=== PATIENT | female | born 1940 | race Two or more races ===

== ENCOUNTER 2024-04-15 10:18 | Emergency (ER) | payer MEDICARE, MEDICAID, SELFPAY ==
[2024-04-15 10:33] VITALS: BP 128/68; PULSE 81; RESP 18; TEMP 37.2; O2SAT 95; BMI 46.8
--- NOTE | 2024-04-15 11:40 | PD.EDRME ---
Rapid Medical Screening Exam RME Arrival date/time: 04/15/24 10:18 This is an 83-year-old female that comes in with complaints of right great toe swelling and pain. Patient states she dropped an object that weighed about 10 pounds to her right foot about 6 days ago. Patient has a history of diabetes, high blood pressure, hyperlipidemia,. Patient has a history of a cholecystectomy and a hernia repair. Patient also complains of a cough for 2 weeks. Patient denies nausea vomiting diarrhea fever. I have greeted and performed a focused initial assessment of this patient. Initial appropriate labs ordered at this time. A comprehensive ED assessment and evaluation of the patient and analysis of all test and completion of medical decision making process will be conducted by additional ED provider. Chief Complaint: Ankle/Foot Injury Time Seen by Provider: 04/15/24 11:27 Vital signs: Vital Signs Temperature 98.9 F 04/15/24 10:33 Pulse Rate 81 04/15/24 10:33 Respiratory Rate 18 04/15/24 10:33 Blood Pressure 128/68 04/15/24 10:33 Pulse Oximetry (%) 95 04/15/24 10:33 Oxygen Delivery Method Room Air 04/15/24 10:33
--- NOTE | 2024-04-15 11:41 | XR_ITS ---
Examination: Foot, right, 3 views Technique: AP, oblique, lateral views foot, 3 views Date and time of exam: April 15, 2024 1158 hrs. Indications: Injury to the foot 5 days ago with first digit pain Findings: Severe osteopenia Fractures through the distal portion distal phalanx first digit with up to 3.6 mm offset of the main fracture fragments No dislocation Impression: Comminuted displaced fractures distal phalanx first digit
--- NOTE | 2024-04-15 11:44 | XR_ITS ---
Examination: PA chest single view Technique: Upright PA chest single view Exam date and time: April 15, 2024 1155 hrs. Comparison March 07, 2024 Indications: Coughing beginning 2 weeks ago. Findings: Early heart failure Mild to moderate enlargement cardiac contour Prominent vascular congestion, suspicious for early septal edema at the lung bases No lobar pneumonia Impression: Early heart failure
[2024-04-15 12:38] LABS: Basophils # (Auto) 0.2 Thou/mm3 (0.0-0.2); Basophils % (Auto) 1 % (0-2.5); Eosinophils # (Auto) 0.7 Thou/mm3 (0.0-0.5); Eosinophils % (Auto) 6 % (0-10); Hematocrit 41.8 % (36.0-46.0); Hemoglobin 13.3 g/dL (12.0-16.0); Immature Granulocytes % (Auto) 1 % (0-0); Immature Granulocytes Auto 0.16 Thou/mm3 (0.00-0.00); Lymphocytes # (Auto) 1.9 Thou/mm3 (1.0-4.8); Lymphocytes % (Auto) 17 % (10-50); Mean Corpuscular HGB Conc 31.8 g/dl (31.0-37.0); Mean Corpuscular Volume 94 fL (80-100); Monocytes # (Auto) 0.8 Thou/mm3 (0.0-0.8); Monocytes % (Auto) 8 % (0-12); Neutrophils # (Auto) 7.5 Thou/mm3 (1.8-7.7); Neutrophils % (Auto) 67 % (37-80); Nucleated Red Blood Cell % 0 /100 WBC (0); Platelet Count 281 Thou/mm3 (140-440); RDW Standard Deviation 49.2 fL (36.4-46.3); Red Blood Count 4.44 Miln/mm3 (4.00-5.20); White Blood Count 11.2 Thou/mm3 (3.6-11.0)
[2024-04-15 12:48] LABS: Alanine Aminotransferase 21 U/L (10-49); Albumin, Serum 4.8 gm/dL (3.4-4.8); Albumin/Globulin Ratio 1.6 (1.2-2.2); Alkaline Phosphatase 124 U/L (46-116); Anion Gap 6 (7-16); Aspartate Amino Transferase 21 U/L (0-34); BUN/Creatinine Ratio 26 Ratio (12-20); Bilirubin,Total 0.4 mg/dL (0.3-1.2); Blood Urea Nitrogen 21 mg/dL (9-23); C-Reactive Protein 1.7 mg/dL (0.0-0.9); Calcium 9.5 mg/dL (8.3-10.6); Calcium (Corrected) 9.5 mg/dL (8.5-10.1); Carbon Dioxide 27.2 mMol/L (20.0-31.0); Chloride 104 mMol/L (98-107); Creatinine (Component) 0.8 mg/dL (0.6-1.3); Estimated Creatinine Clearance 58.5 mL/min (>60); Glucose 105 mg/dL (74-106); Osmolality,Calculated 276 (275-295); Potassium 4.8 mMol/L (3.4-5.1); Sodium 137 mMol/L (136-145); Total Protein 7.8 gm/dL (5.7-8.2); eGFR > 60 See Note
--- NOTE | 2024-04-15 13:33 | EDNOTE_ITS ---
ED General RME/HPI General Chief complaint: Ankle/Foot Injury Stated complaint: Toe injury on Tuesday, cough X 2 weeks Time Seen by Provider: 04/15/24 11:27 Arrival date/time: 04/15/24 10:18 CC: Right great toe pain HPI onset 6 days ago after dropping a frozen piece of meat on your toe, patient states she is persistently a toe and now the toe is swollen . Patient denies fever chills shortness of breath or difficulty breathing. Localized pain is 1-2 on a 10 scale. Denies numbness or tingling in the toe. RME / HPI RME / HPI narrative: 04/15/24 10:18 This is an 83-year-old female that comes in with complaints of right great toe swelling and pain. Patient states she dropped an object that weighed about 10 pounds to her right foot about 6 days ago. Patient has a history of diabetes, high blood pressure, hyperlipidemia,. Patient has a history of a cholecystectomy and a hernia repair. Patient also complains of a cough for 2 weeks. Patient denies nausea vomiting diarrhea fever. I have greeted and performed a focused initial assessment of this patient. Initial appropriate labs ordered at this time. A comprehensive ED assessment and evaluation of the patient and analysis of all test and completion of medical decision making process will be conducted by additional ED provider. Related Data Home Medications ?Medication ?Instructions ?Recorded ?Confirmed docusate sodium 100 mg capsule 100 mg PO BID #0 caps 03/21/15 08/07/23 (Colace) folic acid 1 mg tablet 1 mg PO QDAY #0 tabs 03/21/15 08/07/23 metoprolol succinate 50 mg 50 mg PO QDAY ##30 03/21/15 08/07/23 tablet,extended release 24 hr simvastatin 40 mg tablet 40 mg PO QDAY ##90 03/21/15 08/07/23 duloxetine 60 mg capsule,delayed 60 mg PO QDAY 08/07/23 08/07/23 release isosorbide mononitrate 60 mg 60 mg PO QAM 08/07/23 08/07/23 tablet,extended release 24 hr levothyroxine 150 mcg tablet 150 mcg PO QAM 08/07/23 08/07/23 metformin 750 mg tablet,extended 750 mg PO QDAY 08/07/23 08/07/23 release 24 hr montelukast 10 mg tablet 10 mg PO QDAY 08/07/23 08/07/23 Previous Rx's ?Medication ?Instructions ?Recorded benzonatate 100 mg capsule 100 mg PO TID PRN cough #14 caps 11/16/20 (Irasema Marquez) Allergies Allergy/AdvReac Type Severity Reaction Status Date / Time Penicillins Allergy Severe HIVES AND Verified 08/05/23 10:34 ITCHING Review of Systems Review of Systems Narrative Review of Systems: GEN: No fever, no chills, no weight loss EYES: No discharge, no visual changes, no pain HEENT: No ear pain, no congestion, no sore throat PULM: No shortness of breath, no cough, no congestion CV: No chest pain, no dyspnea on exertion, no palpitations GI: No nausea, no vomiting, no diarrhea, no pain, no constipation : No frequency, no urgency, no dysuria MUSC/SKEL: No joint pain, no back pain,+ great toe pain SKIN: No rash PSYCH: No hallucinations, no depression HEME/LYMPH: No easy bleeding or bruising tendencies NEURO: No weakness, no headache Past Medical History Past Medical History NEUROLOGIC: Negative Seizures CARDIAC: Positive Cardiac Disorders, Hypertension and Hypotension; Negative Congestive Heart Failure RESPIRATORY: Negative Chronic Obstructive Pulmonary Disease (COPD) or Asthma GENITOURINARY: Negative Renal Disease ENDOCRINE: Negative Diabetes Mellitus Type 1 or Diabetes Mellitus Type 2 HEMATOLOGIC: Negative Sickle Cell Disease OTHER HISTORY: Negative Blood Transfusions, Blood Transfusion Reaction or Anesthesia Reactions Surgical History SURGICAL: Positive Abdominal Surgery Social History SMOKING STATUS: Former smoker ED Exam Narrative Physical exam: [General: Morbidly obese not in any acute distress Head normocephalic HEENT: Within acceptable limits Neck is supple nontender Chest equal chest rise nontender to palpation Respiratory: Clear to auscultation no wheezes crackles or rubs CV: Rate rhythm is regular no murmurs rubs or clicks Abdomen is distended secondary to body habitus soft nontender no masses positive bowel sounds all 4 quadrants Back: No CVA tenderness no spinous process tenderness from cervical spine thoracic and lumbar spine Skin: Large hematoma overlying the dorsum of the right great toe. No surrounding erythema or edema. Hematoma is equivalent to the size of the toe itself. Nontender to touch. Otherwise skin is intact no petechiae rash induration ulceration or crepitus Extremities: Moving all extremity against resistance cap refill less than 2 seconds neurosensory intact Neuro: Awake alert oriented x3 Glascow coma 15 no focal deficits] Course Quality Measures none Orders Category Date Time Status Splint / Immobilizer STAT Care 04/15/24 13:37 Completed XR chest 2V Stat Exams 04/15/24 11:44 Completed XR foot comp RT min 3V Stat Exams 04/15/24 11:41 Completed CBC Stat Lab 04/15/24 12:18 Completed CRP [C-Reactive Protein] Stat Lab 04/15/24 12:18 Completed Comprehensive Metabolic Panel Stat Lab 04/15/24 12:18 Completed Vital Signs Vital signs: Vital Signs Temperature 98.9 F 04/15/24 10:33 Pulse Rate 81 04/15/24 10:33 Respiratory Rate 18 04/15/24 10:33 Blood Pressure 128/68 04/15/24 10:33 Pulse Oximetry (%) 95 04/15/24 10:33 Oxygen Delivery Method Room Air 04/15/24 10:33 Procedures -ED Procedure Comment Draining hematoma, #11 scalpel used to darlene the side, it was mostly filled with serous fluid, site was then cleaned skin was lifted from the area no open puncture wound or laceration underlying it indicating an open fracture. Site was then dressed with triple antibiotic ointment and a bulky dressing. Patient was able to flex and extend the toe throughout the procedure. Cap refill in the digit and is less than 2 seconds neurosensory intact. [facility] Patient data External records reviewed:: [facility] previous records Clinical information provided by:: patient Social determinants that could affect healthcare access:: none Patient has the following chronic illnesses:: Diabetes hypertension hyperlipidemia How is presenting disease/condition affected by chronic disease/condition?: u neffected by Evaluation data The following diagnostics were reviewed and interpreted by me:: lab results and radiology exam(s) Lab and/or radiology exams considered but not ordered:: Comminuted tuft fracture on EKG as interpreted by radiology Interpretation Summary: Tuft fracture with toe hematoma Medications Medications considered but not ordered:: None Medication administrations:: None Consultations Consultation(s) initiated? (list below): No Diagnosis Differential Diagnosis ED Complaint MDM: Open toe fracture closed toe fracture toe fracture with hematoma Most likely diagnosis given after review of the tests above:: Toe fracture with hematoma Admission Indicated Admission indicated?: not indicated Explain why admission is indicated or not indicated:: Stable for outpatient follow-up Admission Request Was there a request for admission?: No Disposition Plan Disposition Plan: Discharge Discharge Attestation Discharge Attestation: The patient and all family members were given an opportunity to ask questions and understood the discharge instructions. Discharge instructions specifically effects, indications for sooner follow up or return to the emergency department, and the expected course of current diagnosis. Patient condition: Stable Medical Decision Making Differential Diagnosis Differential Diagnosis: Open toe fracture closed toe fracture toe fracture with hematoma Lab Data 04/15/24 12:18 04/15/24 12:18 Labs: Lab Results 04/15/24 Range/Units 12:18 WBC 11.2 H (3.6-11.0) Thou/mm3 RBC 4.44 (4.00-5.20) Miln/mm3 Hgb 13.3 (12.0-16.0) g/dL Hct 41.8 (36.0-46.0) % MCV 94 (80-100) fL MCH 30.0 (25.0-35.0) pg MCHC 31.8 (31.0-37.0) g/dl RDW Std Deviation 49.2 H (36.4-46.3) fL Plt Count 281 (140-440) Thou/mm3 Neut % (Auto) 67 (37-80) % Lymph % (Auto) 17 (10-50) % [place] % (Auto) 8 (0-12) % Eos % (Auto) 6 (0-10) % Baso % (Auto) 1 (0-2.5) % Neut # (Auto) 7.5 (1.8-7.7) Thou/mm3 Lymph # (Auto) 1.9 (1.0-4.8) Thou/mm3 [place] # (Auto) 0.8 (0.0-0.8) Thou/mm3 Eos # (Auto) 0.7 H (0.0-0.5) Thou/mm3 Baso # (Auto) 0.2 (0.0-0.2) Thou/mm3 Immature Gran # (Auto) 0.16 H (0.00-0.00) Thou/mm3 Absolute Nucleated RBC 0.00 (0.00-0.00) Thou/mm3 Immature Gran % 1 H (0-0) % Nucleated RBC % 0 (0) /100 WBC Sodium 137 (136-145) mMol/L Potassium 4.8 (3.4-5.1) mMol/L Chloride 104 (98-107) mMol/L Carbon Dioxide 27.2 (20.0-31.0) mMol/L Anion Gap 6 L (7-16) BUN 21 (9-23) mg/dL Creatinine 0.8 (0.6-1.3) mg/dL Estim Creat Clear Calc 58.5 L (>60) mL/min eGFR > 60 (60 - ) See Note BUN/Creatinine Ratio 26 H (12-20) Ratio Glucose 105 (74-106) mg/dL Calculated Osmolality 276 (275-295) Calcium 9.5 (8.3-10.6) mg/dL Corrected Calcium 9.5 (8.5-10.1) mg/dL Total Bilirubin 0.4 (0.3-1.2) mg/dL AST 21 (0-34) U/L ALT 21 (10-49) U/L Alkaline Phosphatase 124 H (46-116) U/L C-Reactive Prot, Quant 1.7 H (0.0-0.9) mg/dL Total Protein 7.8 (5.7-8.2) gm/dL Albumin 4.8 (3.4-4.8) gm/dL Globulin 3.0 (2.3-3.5) gm/dL Albumin/Globulin Ratio 1.6 (1.2-2.2) Discharge Plan Plan Patient Disposition: HOME (Self Care) Patient condition on transfer: Stable Prescriptions/Referrals Prescriptions/Med Rec: No Action metoprolol succinate 50 MG tablet extended release 24 hr 50 mg PO QDAY Qty: 30 simvastatin 40 MG tablet 40 mg PO QDAY Qty: 90 folic acid 1 MG tablet 1 mg PO QDAY Qty: 0 docusate sodium [Colace] 100 MG capsule 100 mg PO BID Qty: 0 benzonatate [Tessalon Perles] 100 mg capsule 100 mg PO TID PRN (Reason: cough) Qty: 14 0RF isosorbide mononitrate 60 mg Tablet Extended Release 24 Hr 60 mg PO QAM levothyroxine 150 mcg tablet 150 mcg PO QAM Patient Comments: take 1 tablet by mouth daily montelukast 10 mg tablet 10 mg PO QDAY Patient Comments: take 1 tablet by mouth once daily metformin 750 mg tablet extended release 24 hr 750 mg PO QDAY Patient Comments: take 1 tablet by mouth once daily duloxetine 60 mg capsule,delayed release(DR/EC) 60 mg PO QDAY Patient Comments: take 1 capsule by mouth once daily Referrals: Dima Prajapati [Primary Care Provider] - In 1 week Problem List Clinical Impression: Fracture of toe, Hematoma of toe Patient/Caregiver Discharge Instructions Other Activity Instructions:: Use the postop shoe for the next 4 to 6 weeks make sure you avoid tripping and falling by using her walker every time you stand up or move. Education Materials: [facility] [employer] [facility], ED Fracture, Toe, Closed Print Language: Urdu Stand Alone Forms: Sharon Award Info., Work/School Release, Patient Portal Info Letter PA/PAPER STEAMER Supervising Physician PA/PAPER STEAMER Supervising Physician: Arturo Givens ENP
--- NOTE | 2024-04-15 13:47 | PC.NURSE ---
patient brought in by daughter for bruising on right toe patient stated she dropped a 10 pound piece of meat on her right toe on tuesday. dicoloration noted to right toe and foot.
--- NOTE | 2024-04-15 14:02 | PC.NURSE ---
right post op shoe applied
[2024-04-15 14:06] VITALS: BP 138/82; PULSE 76; RESP 18; TEMP 36.9; O2SAT 95
== END 2024-04-15 14:09 | disposition home or self-care (01) ==
PROVIDERS: Nurse Practitioner Family; Emergency Provider Emergency Medicine; PCP Physician Assistant
DX: S92.421A Displaced fracture of distal phalanx of right great toe, initial encounter for closed fracture (principal); R05.9 Cough, unspecified; W20.8XXA Other cause of strike by thrown, projected or falling object, initial encounter
CPT/HCPCS: 36415; 71046; 73630; 80053; 85025; 86140; 99283

== ENCOUNTER → 2024-09-27 | Outpatient (CLI) | payer MEDICARE, MEDICAID, SELFPAY ==
--- NOTE | 2024-09-27 | XR_ITS ---
Examination: Lumbar spine 3 views Technique one AP lateral coned lateral lower lumbar spine 3 views Date and time: September 27, 2024 1134 hours INDICATIONS: Patient fell 2 years ago with injury to lower back, persistent lower back pain. FINDINGS: Severe osteopenia. Chronic mild to moderate osteoporotic compressions L5, L4, L3 T11 Diffuse lumbar degenerative disc disease, advanced L4-L5 IMPRESSION: Severe osteopenia No acute lumbar fractures Diffuse lumbar degenerative disc disease, advanced L4-L5
--- NOTE | 2024-09-27 | XR_ITS ---
Examination:Right hip AP, lateral, AP pelvis 3 views Technique: Hip AP lateral, AP pelvis, 3 views Exam date and time:September 27, 2024 1125 hours INDICATIONS: Patient fell 2 years ago with injury to the right hip, persistent right hip pain FINDINGS: Prominent osteopenia Advanced narrowing right hip joint Moderate to advanced narrowing left hip joint Bones of the pelvis intact IMPRESSION: Advanced narrowing right hip joint.
== END | disposition home or self-care (01) ==
PROVIDERS: PCP Nurse Practitioner Family; Referring Provider Nurse Practitioner Family; Visit Provider Nurse Practitioner Family
DX: M25.851 Other specified joint disorders, right hip (principal); M51.360 Other intervertebral disc degeneration, lumbar region with discogenic back pain only; S79.911S Unspecified injury of right hip, sequela; S39.92XS Unspecified injury of lower back, sequela; W19.XXXS Unspecified fall, sequela
CPT/HCPCS: 72100; 73502

== ENCOUNTER 2025-03-06 11:23 | Emergency (ER) | payer MEDICARE, MEDICAID, SELFPAY ==
[2025-03-06] VITALS (7 sets, daily range): BP systolic 135–151; BP diastolic 64–86; PULSE 77–88; RESP 18–95; TEMP 36.9–37.1; O2SAT 92–98; BMI 43.0
--- NOTE | 2025-03-06 11:52 | XR_ITS ---
EXAMINATION: AP chest single view TECHNIQUE: AP portable semiupright chest single view Date and time: March 06, 2025, 1251 hours, comparison April 15, 2024 INDICATIONS: Chest pain today. FINDINGS: Mild prominence cardiac contour Moderate vascular congestion Accentuation basilar bronchovascular markings. No lobar pneumonia or pulmonary edema Prominent osteopenia IMPRESSION: Moderate vascular congestion Bronchitis pattern
--- NOTE | 2025-03-06 11:52 | EKG_ITS ---
[facility] Test Date: 2025-03-06 Pat Name: CHARLI OWENS Department: Room: - Gender: Female Patent Legal Assistant: : 1940 Requested By: Gerardo Garcia (REI) Order Number: [id number] Reading MD: Gerardo Garcia (STORE PROTECTION SPECIALIST) Measurements Intervals [place] Rate: 90 P: 45 OR: 164 QRS: -28 QRSD: 92 T: 78 QT: 355 QTc: 435 Interpretive Statements SINUS RHYTHM WITH OCCASIONAL SUPRAVENTRICULAR PREMATURE COMPLEXES BORDERLINE LEFT AXIS DEVIATION [QRS AXIS < -20] LEFT VENTRICULAR HYPERTROPHY AND ST-T CHANGE [VOLTAGE CRITERIA PLUS ST/T ABNORMALITY] Compared to ECG 08/10/2023 00:41:09 ST (T wave) deviation now present /store/S0/[id number].pdf
--- NOTE | 2025-03-06 11:53 | PD.EDRME ---
Rapid Medical Screening Exam [facility] Arrival date/time: 03/06/25 11:23 84-year-old female with history of hypertension, diabetes, hypothyroid presents to the emergency department today for complaints of cough, congestion, wheezing ongoing x 1 week Chief Complaint: Flu Like Symptoms Vital signs: Vital Signs Temperature 98.7 F 03/06/25 11:37 Pulse Rate 77 03/06/25 11:37 Respiratory Rate 20 03/06/25 11:37 Blood Pressure 135/64 H 03/06/25 11:37 Pulse Oximetry (%) 93 L 03/06/25 11:37 Oxygen Delivery Method Room Air 03/06/25 11:37 Vital signs reviewed by provider: Yes Exam: On exam patient has mild increased work of breathing, wheezing O2 saturation 93% room air within normal notes Clinical Impression: Lab work imaging and EKG obtained
--- NOTE | 2025-03-06 12:20 | PD.EDSOB ---
ED SOB =RME/HPI General Chief Complaint: Flu Like Symptoms Stated Complaint: SOB WITH COUGH X1 WEEK Time Seen by Provider: 03/06/25 12:13 Arrival date/time: 03/06/25 11:23 RME / HPI RME / HPI Narrative: 03/06/25 11:23 84-year-old female with history of hypertension, diabetes, hypothyroid presents to the emergency department today for complaints of cough, congestion, wheezing ongoing x [address] SOOD MAIN ED EVALUATION, 12:20h 84 year old female with history of CAD s/p PCI, hypertension, diabetes, hyperlipidemia presents to the ED for evaluation of cough and shortness of breath beginning 6 days ago. Accompanied by chest feeling congested and sweats. Daughter has noted patient is wheezing that is worse with exertion. Patient additionally complains of bilateral lower extremity pain and weakness. Denies fevers, chills, nausea, vomiting, diarrhea. Daughter mentioned the patient has had positive sick contacts, her sister also sick with similar symptoms. Exam: On exam patient has mild increased work of breathing, wheezing O2 saturation 93% room air within normal notes Impression: Lab work imaging and EKG obtained Related Data Home Medications ?Medication ?Instructions ?Recorded ?Confirmed docusate sodium 100 mg capsule 100 mg PO BID #0 caps 03/21/15 08/07/23 (Colace) folic acid 1 mg tablet 1 mg PO QDAY #0 tabs 03/21/15 08/07/23 metoprolol succinate 50 mg 50 mg PO QDAY ##30 03/21/15 08/07/23 tablet,extended release 24 hr simvastatin 40 mg tablet 40 mg PO QDAY ##90 03/21/15 08/07/23 duloxetine 60 mg capsule,delayed 60 mg PO QDAY 08/07/23 08/07/23 release isosorbide mononitrate 60 mg 60 mg PO QAM 08/07/23 08/07/23 tablet,extended release 24 hr levothyroxine 150 mcg tablet 150 mcg PO QAM 08/07/23 08/07/23 metformin 750 mg tablet,extended 750 mg PO QDAY 08/07/23 08/07/23 release 24 hr montelukast 10 mg tablet 10 mg PO QDAY 08/07/23 08/07/23 Previous Rx's ?Medication ?Instructions ?Recorded benzonatate 100 mg capsule 100 mg PO TID PRN cough #14 caps 07/25/21 (Irasema Marquez) Allergies Allergy/AdvReac Type Severity Reaction Status Date / Time Penicillins Allergy Severe HIVES AND Verified 03/06/25 11:27 ITCHING Review of Systems Review of Systems Systems Reviewed: All systems reviewed, normal except as documented Past Medical History Past Medical History CARDIAC: Positive Cardiac Disorders, Hypercholesterolemia, Hypertension and Hypotension PSYCHO/SOCIAL: Positive Anxiety Surgical History SURGICAL: Positive Abdominal Surgery Social History SMOKING STATUS: Never smoker ED Exam Narrative Physical exam: Constitutional: Awake, alert, nontoxic, mildly uncomfortable, elderly, obese HEENT: Normocephalic, atraumatic, extraocular movements intact. Neck: Supple CV: Regular rate and rhythm, no murmurs/rubs/gallops Lungs: Expiratory wheezing, rhonchi, no respiratory distress. Abd: Soft, NT, ND, no HSM noted to palpation Extremities: No deformities, no edema noted Neuro: AAOx3, CN 2-12 GIBL, no acute neuro deficit noted. Skin: Warm, dry, intact Course Course Course Narrative: 1530h: Checked on patient, she notes that her breathing feels better currently after initial treatment. Patient was gotten up from bed to ambulate in ED to road test her on room air as she is not on home oxygen. Her sats were noted to drop to 87%. Called and spoke with hospitalist team C for admission. Patient has already received dose of Tamiflu for influenza. Quality Measures none Orders Category Date Time Status Bedside COVID-19 Antigen Test NOW Care 03/06/25 11:52 Active EKG (ED ONLY) *Do not use* NOW Care 03/06/25 11:52 Completed Miscellaneous Nursing Order NOW Care 03/06/25 14:39 Active EKG (ED Only) Stat Exams 03/06/25 11:52 Draft XR chest 1V portable Stat Exams 03/06/25 11:52 Completed B-Type Natriuretic Peptide Stat Lab 03/06/25 12:07 Completed CBC Stat Lab 03/06/25 12:07 Completed Comprehensive Metabolic Panel Stat Lab 03/06/25 12:07 Completed FLU A&B [Influenza A & B Rapid Panel] Stat Lab 03/06/25 12:41 Completed Magnesium Stat Lab 03/06/25 12:07 Completed Partial Thromboplastin Time Stat Lab 03/06/25 12:07 Completed Procalcitonin Stat Lab 03/06/25 12:07 Completed Prothrombin Time with INR Stat Lab 03/06/25 12:07 Completed Troponin I Stat Lab 03/06/25 12:07 Completed ALBUTEROL RT 3ml [Proventil Rt 3ml] Med 03/06/25 12:32 Discontinued 2.5 mg INH X1 ONE Acetaminophen Tab [Tylenol ES Tab] Med 03/06/25 14:14 Discontinued 1,000 mg PO X1 ONE Albuterol/Ipratr Rt Destiney [Duoneb Rt Destiney] Med 03/06/25 12:32 Discontinued 3 ml INH X1 ONE Oseltamivir [Tamiflu] Med 03/06/25 14:39 Discontinued 75 mg PO X1 ONE Vital Signs Vital signs: Vital Signs Temperature 98.7 F 03/06/25 11:37 Pulse Rate 77 03/06/25 11:37 Respiratory Rate 20 03/06/25 11:37 Blood Pressure 135/64 H 03/06/25 11:37 Pulse Oximetry (%) 93 L 03/06/25 11:37 Oxygen Delivery Method Room Air 03/06/25 11:37 Pulse ox is 93% on room air which is low. Shortness of Breath / Dyspnea MDM Narrative MDM Narrative:: Neelam Arreola am scribing for and in the presence of Dr. Sood. Patient data External records reviewed:: [facility] previous records Clinical information provided by:: patient Social determinants that could affect healthcare access:: none Patient has the following chronic illnesses:: CAD s/p PCI, hypertension, diabetes, hyperlipidemia How is presenting disease/condition affected by chronic disease/condition?: exacerbated by Evaluation data The following diagnostics were reviewed and interpreted by me:: lab results and EKG tracing(s) ( EKG @ 11:59h, interpreted by me, sinus rhythm with occasional PVCs, borderline left axis deviation, rate 90. ) Lab and/or radiology exams considered but not ordered:: None Interpretation Summary: Influenza A positive Medications / Prescriptions Medications or Prescriptions considered but not ordered:: None Medication administrations:: Medication Administration History Discontinued Medications Acetaminophen (Acetaminophen 500 Mg Tablet) 1,000 mg PO X1 ONE Stop: 03/06/25 14:15 Last Admin: 03/06/25 14:25 Dose: 1,000 mg Documented By: BD Albuterol (Albuterol Rt 2.5 Mg/3 Ml Nebu) 2.5 mg INH X1 ONE Stop: 03/06/25 12:33 Last Admin: 03/06/25 12:57 Dose: 2.5 mg Documented By: KARLIE Albuterol/Ipratropium (Albuterol/Ipratropium (Duoneb) Rt Destiney 3 Ml Nebu) 3 ml INH X1 ONE Stop: 03/06/25 12:33 Last Admin: 03/06/25 12:57 Dose: 3 ml Documented By: KARLIE Oseltamivir Phosphate (Oseltamivir 75 Mg Capsule) 75 mg PO X1 ONE Stop: 03/06/25 14:40 Last Admin: 03/06/25 14:47 Dose: 75 mg Documented By: DAVON As above Consultations Consultation(s) initiated? (list below): Yes Diagnosis Shortness of Breath Differential Diagnosis: acute exacerbation of chronic obstructive airways disease and community acquired pneumonia Most likely diagnosis given after review of the tests above:: Influenza A Admission Indicated Admission indicated?: indicated Admission Request Was there a request for admission?: Yes Admission Attestation Admission request attestation: Discussed case with [] from Hospitalist service regarding admission. Discussed patients ED course, exam findings, labs, and radiology results. The Hospitalist [agrees,declines] to accept the patient for admission. Disposition Plan Disposition Plan: Admit Discharge Plan Plan Patient Disposition: Admit Acute Care w/in Hospital Patient condition on transfer: Stable Prescriptions/Referrals Prescriptions/Med Rec: No Action metoprolol succinate 50 MG tablet extended release 24 hr 50 mg PO QDAY Qty: 30 simvastatin 40 MG tablet 40 mg PO QDAY Qty: 90 folic acid 1 MG tablet 1 mg PO QDAY Qty: 0 docusate sodium [Colace] 100 MG capsule 100 mg PO BID Qty: 0 benzonatate [Tessalon Perles] 100 mg capsule 100 mg PO TID PRN (Reason: cough) Qty: 14 0RF isosorbide mononitrate 60 mg Tablet Extended Release 24 Hr 60 mg PO QAM levothyroxine 150 mcg tablet 150 mcg PO QAM Patient Comments: take 1 tablet by mouth daily montelukast 10 mg tablet 10 mg PO QDAY Patient Comments: take 1 tablet by mouth once daily metformin 750 mg tablet extended release 24 hr 750 mg PO QDAY Patient Comments: take 1 tablet by mouth once daily duloxetine 60 mg capsule,delayed release(DR/EC) 60 mg PO QDAY Patient Comments: take 1 capsule by mouth once daily Referrals: No Primary/Family,Physician [Primary Care Provider] - In 1 week Problem List Clinical Impression: Influenza, Hypoxia Patient/Caregiver Discharge Instructions Print Language: Italian Stand Alone Forms: Sharon Award Info., Patient Portal Info Letter
[2025-03-06 12:21] LABS: Basophils # (Auto) 0.0 Thou/mm3 (0.0-0.2); Basophils % (Auto) 0 % (0-2.5); Eosinophils # (Auto) 0.1 Thou/mm3 (0.0-0.5); Eosinophils % (Auto) 1 % (0-10); Hematocrit 37.9 % (36.0-46.0); Hemoglobin 11.7 g/dL (12.0-16.0); Immature Granulocytes Auto 0.06 Thou/mm3 (0.00-0.00); Lymphocytes # (Auto) 2.0 Thou/mm3 (1.0-4.8); Lymphocytes % (Auto) 22 % (10-50); Mean Corpuscular HGB Conc 30.9 g/dl (31.0-37.0); Mean Corpuscular Hemoglobin 23.3 pg (25.0-35.0); Mean Corpuscular Volume 75 fL (80-100); Monocytes # (Auto) 0.7 Thou/mm3 (0.0-0.8); Monocytes % (Auto) 7 % (0-12); Neutrophils # (Auto) 6.2 Thou/mm3 (1.8-7.7); Neutrophils % (Auto) 69 % (37-80); Nucleated Red Blood Cell # 0.00 Thou/mm3 (0.00-0.00); Nucleated Red Blood Cell % 0 /100 WBC (0); Platelet Count 297 Thou/mm3 (140-440); RDW Standard Deviation 50.8 fL (36.4-46.3); Red Blood Count 5.03 Miln/mm3 (4.00-5.20); White Blood Count 9.0 Thou/mm3 (3.6-11.0)
[2025-03-06 12:31] LABS: INR 1.0 (0.9-1.3); Partial Thromboplastin Time 28.5 Seconds (22.0-36.0); Prothrombin Time 10.4 Seconds (9.0-12.2)
[2025-03-06 12:40] LABS: B-Type Natriuretic Peptide 58 pg/mL (0-100)
[2025-03-06 12:43] LABS: Alanine Aminotransferase 24 U/L (10-49); Albumin, Serum 4.7 gm/dL (3.4-4.8); Albumin/Globulin Ratio 1.6 (1.2-2.2); Alkaline Phosphatase 110 U/L (46-116); Anion Gap 10 (7-16); Aspartate Amino Transferase 25 U/L (0-34); BUN/Creatinine Ratio 15 Ratio (12-20); Bilirubin,Total 0.2 mg/dL (0.3-1.2); Blood Urea Nitrogen 18 mg/dL (9-23); Calcium 10.0 mg/dL (8.3-10.6); Calcium (Corrected) 10.0 mg/dL (8.5-10.1); Carbon Dioxide 26.5 mMol/L (20.0-31.0); Chloride 102 mMol/L (98-107); Creatinine (Component) 1.2 mg/dL (0.6-1.3); Estimated Creatinine Clearance 39.3 mL/min (>60); Globulin 2.9 gm/dL (2.3-3.5); Glucose 163 mg/dL (74-106); Magnesium 1.5 mg/dL (1.6-2.6); Osmolality,Calculated 281 (275-295); Potassium 4.0 mMol/L (3.4-5.1); Sodium 138 mMol/L (136-145); Total Protein 7.6 gm/dL (5.7-8.2); Troponin I < 0.020 ng/mL (0.0-0.045); eGFR 44 See Note
[2025-03-06] MEDS: ALBUTEROL RT 2.5 MG/3 ML NEBU INH (12:57)
[2025-03-06] MEDS: ALBUTEROL/IPRATROPIUM (Duoneb) RT SOL 3 ML NEBU INH (12:57)
[2025-03-06 13:18] LABS: Procalcitonin 0.13 ng/ml (0.0-0.49)
[2025-03-06 13:22] LABS: Influenza A Ag Positive; Influenza B Ag Negative
[2025-03-06] MEDS: ACETAMINOPHEN 500 MG TABLET 1000 MG PO (14:25)
[2025-03-06] MEDS: OSELTAMIVIR 75 MG CAPSULE PO (14:47)
--- NOTE | 2025-03-06 15:49 | PC.SS ---
Patient Bhavna Guevara is a 84 Year old female admitted for SOB with cough X1 Week. SS met with patient at bedside to discuss discharge plan and verify demographic information. Patient reports she lives at home with her son. Patient reports her daughter, Loly Rachel is her surrogate decision maker, [phone]. Patient reports she utilizes a FWW to assist with ambulation. Patient reports she is able to complete all ADL's independently. Choice of pharmacy is [facility]. PCP is Lilly Hair. Patient reports at time of discharge she would like to discharge back home. Family will provide transportation. Per patient she is requesting a Rollator walker Discharge plan: Home Next of kin: Daughter, Loly Rachel
== END 2025-03-06 18:06 | disposition home or self-care (01) ==
PROVIDERS: Nurse Practitioner Primary Care; Emergency Provider Family Medicine
DX: J10.1 Influenza due to other identified influenza virus with other respiratory manifestations (principal); R09.02 Hypoxemia; E11.9 Type 2 diabetes mellitus without complications; I10 Essential (primary) hypertension; E03.9 Hypothyroidism, unspecified; E78.5 Hyperlipidemia, unspecified; I25.10 Atherosclerotic heart disease of native coronary artery without angina pectoris; Z95.5 Presence of coronary angioplasty implant and graft
CPT/HCPCS: 36415; 71045; 80053; 83735; 83880; 84145; 84484; 85025; 85610; 85730; 87502; 87635; 93005; 94640; 99284; A9270